=== PATIENT | male | born 1985 | race Caucasian/White ===

== ENCOUNTER 2023-12-22 20:43 | Emergency (ER) | payer BC ==
[~2023-12-22] VITALS: Ht 185.4 cm; Wt 83.9 kg
[2023-12-22 21:12] VITALS: BP 105/64; TEMP 98.6
[2023-12-22] MEDS ORDERED: IBUP-1953 PO (21:19)
[2023-12-22] MEDS ORDERED: AMOX-430 PO (21:19)
[2023-12-22 21:47] VITALS: O2SAT 100
== END 2023-12-22 21:47 | disposition home or self-care (01) ==
LOC: ER 20:46
DX: S60.571A Other superficial bite of hand of right hand, initial encounter (principal); F17.200 Nicotine dependence, unspecified, uncomplicated; W54.0XXA Bitten by dog, initial encounter; Y93.89 Activity, other specified; Y92.098 Other place in other non-institutional residence as the place of occurrence of the external cause; Y99.8 Other external cause status